=== PATIENT | male | born 1990 | race Caucasian/White ===

== ENCOUNTER 2023-04-12 10:42 | Emergency (ER) | payer BC, SELFPAY ==
[2023-04-12 11:10] VITALS: BP 123/88; PULSE 87; RESP 18; TEMP 36.7; O2SAT 100; BMI 24.4
--- NOTE | 2023-04-12 11:23 | ED.GENADULT ---
HPI - General Adult General Chief complaint: Chest Pain Stated complaint: Chest/back pain Time Seen by Provider: 04/12/23 10:50 History of Present Illness HPI narrative: reports that he has had gradually worsening chest and back pain since yesterday afternoon. pain worsens with certain movements. has had some back issues in the past. due to overuse as he was pushing cars. this pain is different and denies any trauma. pain lingers all the time, but movements exacerbate the pain. does have hx of anxiety also. did not eat today as he was at work and does admit to feeling lightheaded. came from work to here. he has a job as an mill machinist. does admit to doing bench presses and working out with weights the last 2 weeks. 32-year-old man presenting to the emergency department with complaint of left low anterior chest pain. This has been present persistently since yesterday. Noticed it particularly when he went to try to set up from a period of rest. Had been present prior. Does have a history of heartburn but not really since he quit drinking though he did try some Tums. This heartburn usually presented with discomfort in the suprasternal notch. Does not have a cardiac history. He has started weightlifting again recently but does not recall injuring himself in after the initial 2 days of being sore that had mostly resolved. Pain seems to be worse with movement. 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 I noted to be breathing heavily but he denies being short of breath indeed is oxygenating 100% when he is labored like this. Is hungry would like to eat his breakfast the left in the car. Does endorse some anxiety and some lightheadedness. No peripheral symptoms reported. No cough or cold symptoms. No fever. No rash but then he is uncertain looking at his chest. Did also try some ?extra-strength Tylenol? without relief. Related Data Allergies Allergy/AdvReac Type Severity Reaction Status Date / Time cefdinir Allergy Verified 04/12/23 11:09 Review of Systems Status of ROS: Reports: 6 or more systems reviewed and unremarkable except as noted in History and below PFSH PFS Social History Smoking Status: Current some day smoker Do you use any of these nicotine containing products: E-Cigarettes Second hand tobacco smoke exposure: No How often do you have a drink containing alcohol: monthly or less How many standard drinks containing alcohol do you have on a typical day: 1 or 2 How often do you have six or more drinks on one occasion: Less than monthly AUDIT-C Alcohol total score: 2 Non-prescribed substance use: marijuana (any form) Non-prescribed substance use details: smokes and gummies weekly service: No Exam Narrative: Exam Narrative: Intermittently labored breathing. Grimacing intermittently in apparent discomfort. Buried in degrees of presentation over the course of our interview. Cranial nerves 2-12 intact. Moving all extremities without difficulty. He has no lower extremity edema. Lungs are clear with breath sounds throughout. There is no supraclavicular crepitus. Heart in regular rate and rhythm the murmur rub or gallop. Abdomen is soft and nontender. I am not really able to reproduce reliably discomfort in the area in question in the right low chest. Opposition compression testing does not precisely reproduce it either. He is sore to palpation in the paraspinal musculature of the left infra scapular area. Const: Vital Signs, click to edit/add: Vital Signs - 24 hr 04/12/23 11:10 04/12/23 11:50 04/12/23 13:00 Temperature 98.1 F Pulse Rate [Pulse Oximeter] 87 88 100 Respiratory Rate 18 18 18 Blood Pressure [Ri ght Upper Arm] 123/88 124/86 118/85 Pulse Oximetry 100 99 99 Oxygen Delivery Me thod Room Air Room Air Documenting provider has reviewed patient's vital signs: yes Course Vital Signs Vital signs: Initial Vital Signs Temperature 98.1 F 04/12/23 11:10 Temperature Source Temporal Artery Scan 04/12/23 11:10 Pulse Rate 87 04/12/23 11:10 Pulse Rhythm Regular 04/12/23 11:10 Respiratory Rate 18 04/12/23 11:10 Blood Pressure 123/88 04/12/23 11:10 Blood Pressure Mean 99 04/12/23 11:10 Blood Pressure Position Supine 04/12/23 11:10 Pulse Oximetry 100 04/12/23 11:10 Oxygen Delivery Method Room Air 04/12/23 11:10 Vital Signs Temperature 98.1 F 04/12/23 11:10 Pulse Rate 87 04/12/23 11:10 Respiratory Rate 18 04/12/23 11:10 Blood Pressure 123/88 04/12/23 11:10 Pulse Oximetry 100 04/12/23 11:10 Oxygen Delivery Method Room Air 04/12/23 11:10 Temperature 98.1 F 04/12/23 11:10 Pulse Rate 100 04/12/23 13:00 Respiratory Rate 18 04/12/23 13:00 Blood Pressure 118/85 04/12/23 13:00 Pulse Oximetry 99 04/12/23 13:00 Oxygen Delivery Method Room Air 04/12/23 11:50 Medications Administered Medications: Discontinued Medications Generic Name Dose Route Start Last Admin Trade Name Freq PRN Reason Stop Dose Admin Ibuprofen 800 mg 04/12/23 12:28 04/12/23 13:17 Ibuprofen 400 Mg Tablet PO 04/12/23 12:29 800 mg ONCE ONE Administration Medical Decision Making MDM Narrative Medical decision making narrative: Certainly would appear to be chest wall pain though is not reliably reproducible. Intercostal irritation of some sort? Possible pneumonia though no infectious prodrome apparent. Pneumothorax? Does not appear to be gallbladder disease. Doubtful ischemic cardiac. Pericarditis? Pleuritis? Though again not pleuritic exactly. Same goes for pulmonary embolus? Prescribed ibuprofen. Will check chest x-ray and labs potentially indicate further workup. Chest x-ray reviewed by me is unremarkable without pneumothorax or pneumomediastinum. No pneumonia. Maybe some atelectatic change in the right lower lung. On reassessment is quite improved during time in the emergency department. See patient discharge plan Lab Data Lab results reviewed: Yes I reviewed the patient's lab results Labs: Lab Results 04/12/23 04/12/23 Range/Units 11:36 11:49 WBC 6.29 (4.50-11.00) K/uL RBC 5.01 (4.30-5.90) m/uL Hgb 14.4 (13.5-17.5) gm/dL Hct 42.6 (37.0-53.0) % MCV 85 (80-100) fL MCH 29 (26-34) pg MCHC 34 (32-36) gm/dL RDW Coeff of Lara 12.1 (11.5-15.5) % Plt Count 326 (140-440) K/uL Neut % (Auto) 50.4 (42.0-72.0) % Lymph % (Auto) 38.5 (20-44) % [place] % (Auto) 6.8 (0.0-11.0) % Eos % (Auto) 3.7 (0.0-7.0) % Baso % (Auto) 0.6 (0.0-3.0) % Neut # (Auto) 3.17 (1.7-7.0) K/uL Lymph # (Auto) 2.42 (0.90-2.90) K/uL [place] # (Auto) 0.40 (0.00-0.90) K/UL Eos # (Auto) 0.23 (0.00-0.50) K/uL Baso # (Auto) 0.04 (0.00-0.30) K/uL Abs Immat Gran (auto) 0.00 (0.00-0.30) K/uL Imm/Tot Granulo (auto) 0.0 % D-Dimer Quant (PE/DVT) 0.18 (0.00-0.50) ug/ml Sodium 135 (135-149) mmol/L Potassium 3.3 L (3.6-5.1) mmol/L Chloride 100 (96-114) mmol/L Carbon Dioxide 22 (20-32) mmol/L Anion Gap 13 (7-15) mEq/L BUN 10 (5-24) mg/dL Creatinine 0.6 (0.5-1.5) mg/dL Estimated Creat Clear 180.81 Estimated GFR 131 ml/min Glucose 97 (60-115) mg/dL Calcium 9.7 (8.4-10.6) mg/dL Total Bilirubin 0.4 (0.1-1.5) mg/dL Direct Bilirubin 0.2 (0.0-0.5) mg/dL AST 33 (12-35) U/L ALT 35 (4-50) U/L Alkaline Phosphatase 58 (40-150) U/L Troponin I < 0.01 L (0.01-0.04) ng/mL C-Reactive Protein < 0.5 L (0.5-1.0) mg/dL NT-Pro-B Natriuret Pep < 20 pg/mL Total Protein 7.2 (6.0-8.3) g/dL Albumin 4.6 (3.3-5.0) g/dL Lipase 119 (23-300) U/L POC Troponin I 0.00 L (0.01-0.04) ng/ml ECG Data Attestation: I personally reviewed and interpreted this ECG as follows: (Normal sinus rhythm rate of 73. No acute ischemic changes.) Discharge Plan Discharge Clinical Impression: Chest wall pain Patient Disposition: Home, Self-Care Condition: Improved Additional Instructions: Sorry I can not tell you for sure what is going on; I think for lack of better terminology, costochondritis of some form. Typically treat this with NSAIDs. As I said would recommend taking up to 800 mg of ibuprofen 3 times daily over the next 4-5 days are alternatively up to 500 mg naproxen twice daily. Reassess after that this need for further treatment. Of course if things escalate, you become increasingly short of breath, persistently lightheaded, please return. Follow Up/Referrals: Provider,Not a Local [Primary Care Provider] - Stand Alone Forms: TrustedAd Info Instructions
--- NOTE | 2023-04-12 11:35 | XR_ITS ---
Patient: ALPESH SALMON Facility:?[facility] Patient ID:?[id number] Site Patient ID:?[id number]. Site :?1990 Study:?XRay-Chest 2V-04/12/2023 12:03:47 PM Ordering Physician:?DR. OHARA Final Report: Indication: Chest pain. Technique: Two view(s) of the chest. Comparison: None available. Findings: Normal cardiomediastinal silhouette and pulmonary vasculature. Lungs are well inflated and clear. No focal consolidation, pleural effusion or pneumothorax. No acute osseous abnormality. Impression: No acute cardiopulmonary abnormality identified. Dictated by Mehreen Nugent MD @ 04/12/2023 12:15:12 PM Signed by:?Mehreen Nugent MD @04/12/2023 12:15:12 PM (Electronic Signature)
[2023-04-12 11:50] VITALS: BP 124/86; PULSE 88; RESP 18; O2SAT 99
[2023-04-12 12:07] LABS: Basophils Absolute Auto 0.04 K/uL (0.00-0.30); Basophils Percent Auto 0.6 % (0.0-3.0); Eosinophils Absolute Auto 0.23 K/uL (0.00-0.50); Eosinophils Percent Auto 3.7 % (0.0-7.0); Hematocrit 42.6 % (37.0-53.0); Hemoglobin* 14.4 gm/dL (13.5-17.5); Lymphocytes Absolute Auto 2.42 K/uL (0.90-2.90); Lymphocytes Percent Auto 38.5 % (20-44); Mean Corpuscular HGB Conc 34 gm/dL (32-36); Mean Corpuscular Hemoglobin 29 pg (26-34); Mean Corpuscular Volume 85 fL (80-100); Monocytes Percent Auto 6.8 % (0.0-11.0); Neutrophils Absolute Auto 3.17 K/uL (1.7-7.0); Neutrophils Percent Auto 50.4 % (42.0-72.0); Platelet Count* 326 K/uL (140-440); RDW Coefficient of Variation % 12.1 % (11.5-15.5); Red Blood Count 5.01 m/uL (4.30-5.90); White Blood Count* 6.29 K/uL (4.50-11.00)
[2023-04-12 12:09] LABS: Slide Review Reflex No
[2023-04-12 12:21] LABS: Albumin* 4.6 g/dL (3.3-5.0); Chloride* 100 mmol/L (96-114)
[2023-04-12 12:22] LABS: Potassium* 3.3 mmol/L (3.6-5.1); Sodium* 135 mmol/L (135-149)
[2023-04-12 12:23] LABS: Creatinine* 0.6 mg/dL (0.5-1.5); Est. Creatinine Clearance* 180.81; Estimated Glomerular Filt Rate 131 ml/min
[2023-04-12 12:24] LABS: Alkaline Phosphatase* 58 U/L (40-150); Anion Gap 13 mEq/L (7-15); Aspartate Amino Transferase* 33 U/L (12-35); Bilirubin Direct* 0.2 mg/dL (0.0-0.5); Bilirubin Total* 0.4 mg/dL (0.1-1.5); Blood Urea Nitrogen* 10 mg/dL (5-24); Carbon Dioxide* 22 mmol/L (20-32); Lipase* 119 U/L (23-300); Total Protein* 7.2 g/dL (6.0-8.3)
[2023-04-12 12:25] LABS: Alanine Aminotransferase* 35 U/L (4-50); Calcium* 9.7 mg/dL (8.4-10.6); Glucose* 97 mg/dL (60-115)
[2023-04-12 12:29] LABS: C Reactive Protein* < 0.5 mg/dL (0.5-1.0)
[2023-04-12 12:34] LABS: NT Pro B Type NatriureticPept* < 20 pg/mL
[2023-04-12 12:38] LABS: Troponin I* < 0.01 ng/mL (0.01-0.04)
[2023-04-12 13:00] VITALS: BP 118/85; PULSE 100; RESP 18; O2SAT 99
[2023-04-12 13:09] LABS: D Dimer Quantitative* 0.18 ug/ml (0.00-0.50)
[2023-04-12] MEDS: IBUPROFEN 400 MG TABLET 800 MG PO (13:17)
== END 2023-04-12 13:34 | disposition home or self-care (01) ==
PROVIDERS: Emergency Provider Family Medicine
DX: R07.89 Other chest pain (principal)
CPT/HCPCS: 36415; 71046; 80048; 80076; 83690; 83880; 84484; 85025; 85379; 86140; 93005; 99284; 99285; A9270

== ENCOUNTER 2025-02-11 15:12 | Emergency (ER) | payer BC, SELFPAY ==
--- OUTSIDE RECORDS SUMMARY | 2025-01-31 12:30 | XMS_ITS | Encounter Summary ---
Author Organization [place] Address [address] [place] [address] Care Team Providers Care Nurse Practitioner Home Assessments Name Role Phone Dalia Wang PA-C Primary Care Provid er Dalia Wang PA-C Unavailable [phone]- [phone] Parris Soto CORPORATE SECURITY MANAGER Unavailable [phone] Reason for Visit * ReasonCommentsInjectionsImm/InjSublocade 300mg * Treatment and Therapy Plans (Routine) - Pending ReviewSpecialtyDiagnoses / ProceduresReferred By ContactReferred To ContactInfusion Therapy Diagnoses Opioid dependence with opioid-induced disorder (H) Procedures BUPRENORPH XR 100 MG OR LESS BUPRENORPHINE XR OVER 100 MG Rica Varela, FUEL MANAGER [address] [place] [address] Phone: tel: fax: [facility] [address] [place] [address] [address] [place] [address] Phone: tel: fax: Referral IDStatusReasonStart DateExpiration DateVisits RequestedVisits [id number] Encounter Details DateTypeDepartmentCare Team (Latest Contact Info)Fkzebjueteu10/19/2025 12:30 PM CSTInfusion Therapy Visit [facility] [address] [place] [address] [address] [place] [address] Rica Varela, FUEL MANAGER [address] [facility] [address] [place] [address] Opioid dependence with opioid-induced disorder (H) (Primary Dx) Social History Tobacco UseTypesPacks/DayYears UsedDateSmoking Tobacco: FormerCigarettes0.55 Vaping DevicePassive Smoke Exposure: NeverSmokeless Tobacco: CurrentChewAlcohol UseStandard Drinks/WeekCommentsNot Currently0 (1 standard drink = 0.6 oz pure alcohol)AUDIT-CAnswerDate RecordedQ1: How often do you have a drink containing alcohol?2-4 times a month03/27/2020Q2: How many drinks containing alcohol do you have on a typical day when you are drinking?5 or 6003/27/2020Q3: How often do you have six or more drinks on one occasion?Less than swxlahd9903/27/2020HQ-2Answer Date RecordedPHQ-2 Ouvwm543dolescent EducationAnswerDate Recorded Getting School Help NeededNot on file11/15/2022Food InsecurityAnswerDate RecordedWithin the past 12 months, did you worry that your food would run out before you got money to buy more?No01/26/2025Within the past 12 months, did the food you bought just not last and you didn???t have money to getmore?No 01/26/2025Housing StabilityAnswerDate RecordedDo you have housing? (Housing is defined as stable permanent housing and does not include staying outside in a car, in a tent, in an abandoned building, in an overnight senior living, or couch-surfing.)Yes01/26/2025re you worried about losing your housing?No 01/26/2025Financial Resource StrainAnswerDate RecordedWithin the past 12 months, have you or your family members you live with been unable to get utilities (heat, electricity) when it was really needed?No01/26/2025Transportation Needs AnswerDate RecordedWithin the past 12 months, has lack of transportation kept you from medical appointments, getting your medicines, non-medical meetings or appointments, work, or from getting things that you need?No01/26/2025Sex and Gender InformationValueDate RecordedSex Assigned at BirthNot on fileLegal Sex Male12/18/2011 3:19 AM CSTGender IdentityNot on fileSexual OrientationNot on fileOccupationIndustryJob Start DateJob End Datemachinist, programsNot on file Not on fileNot on filedocumented as of this encounter Last Filed Vital Signs Vital SignReadingTime TakenCommentsBlood Eogintcg272/7901/31/2025 11:30 AM BOW MAKER GIFT WRAPPING Uexgd224001/31/2025 11:30 AM LPDVsbkhexbnhf48.4 ??C (99.3 ??F)01/31/2025 11:30 AM CSTRespiratory Rate--Oxygen Saturation--Inhaled Oxygen Concentration--Weight-- Height--Body Mass Index--documented in this encounter Progress Notes * Laisha Deng RN - 01/31/2025 12:30 PM CST Infusion Nursing Note: Rory Adams presents today for sublocade injection Patient seen by provider today: Yes: Going to after this injectin Mannequin Mounter present during visit today: Not Applicable. Note: N/A. Has pt had any opioid use in the last week ? No Has pt had any withdrawal symptoms or cravings in the last week? No Is there any evidence of tampering with the old depot? No Lidocaine and then Sublocade given in the LLQ. Post Infusion Assessment: Patient tolerated injection without incident. Discharge Plan: Patient discharged in stable condition accompanied by: self. Departure Mode: Ambulatory. RTC 03/07/25. Laisha Deng RN MAKER GIFT WRAPPING documented in this encounter Plan of Treatment DateTypeDepartmentCare Team (Latest Contact Info)Omfytxafxzg81/23/2026 8:30 AM CSTInfusion Therapy Visit [facility] [address] [address] [place], [place] [id number] Rica Varela, FUEL MANAGER [address] [place] [address] [address] [place], [place] [id number] documented as of this encounter Visit Diagnoses Diagnosis Opioid dependence with opioid-induced disorder (H)- Primary Unspecified drug-induced mental disorder documented in this encounter Administered Medications Medication OrderMAR ActionAction DateDoseRateSite buprenorphine ER (SUBLOCADE) syringe 300 mg 300 mg, Subcutaneous, ONCE, On Mon01/31/25 at 1130, For 1 dose, Allow to sit at room temperature for at least 15 minutes prior to administration. Give only by subcutaneous injection in the abdomen, thigh, buttock, or back of the upper arm. Indications:Opioid dependence with opioid-induced disorder (H)$Given01/31/2025 11:34 AM JAO164 mgLeft Lower Abdomen lidocaine (PF) (XYLOCAINE) 1 % injection 2 mL 2 mL, Subcutaneous, ONCE, On Mon01/31/25 at 1130, For 1 dose, Give PRIOR to Sublocade injection. Ze the spot where the Lidocaine is given, wait a few minutes for the tissue to numb and then administer Sublocade with the same trajectory as you did with the Lidocaine. Indications:Opioid dependence with opioid-induced disorder (H)$Given01/31/2025 11:28 AM CST2 mLsLeft Lower Abdomendocumented in this encounter Additional Health Concerns AssessmentNoted TimePHQ-9 Depression Total Score: 7104/03/2024 12:41 PM BOW MAKER GIFT WRAPPING documented as of this encounter Care Teams Team MemberRelationshipSpecialtyStart DateEnd Dalia Wang PA-C [address] , [address] [address] PCP - GeneralPhysician Assistant08/26/16 Dalia Wang PA-C [address], [place] [address] [place] [address] Assigned PCP07/07/19 Parris Soto NP [facility] [address] [place], [place] [address] Assigned Behavioral Health Provider07/05/24documented as of this encounter
[2025-02-11 15:23] VITALS: BP 107/71; PULSE 82; RESP 18; TEMP 35.9; O2SAT 99; BMI 24.4
--- OUTSIDE RECORDS SUMMARY | 2025-02-11 15:26 | XMS_ITS | Encounter Summary ---
Author Organization [place] Address [address] [facility] [place] [address] Care Team Providers Care Windows Server Administrator Name Role Phone Dalia Wang PA-C Primary Care Provid er Dalia Wang PA-C Unavailable [phone] Parris Soto NP Unavailable [phone] Encounter Details DateTypeDepartmentCare Team (Latest Contact Info)Rlgyyqqahkj90/19/2025Travel Social History Tobacco UseTypesPacks/DayYears UsedDateSmoking Tobacco: FormerCigarettes0.55 [...] or more drinks on one occasion?Less than uqbyelp20/12/2021PHQ-2Answer Date RecordedPHQ-2 Ocirn856dolescent EducationAnswerDate Recorded Getting School Help NeededNot on [...] in an abandoned building, in an overnight fdc, or couch-surfing.)Yes01/26/2025re you worried about losing your [...] fileNot on filedocumented as of this encounter Plan of Treatment DateTypeDepartmentCare Team (Latest Contact Info)Zycocujknue87/23/2026 8:30 AM CSTInfusion Therapy Visit [facility] [address] [address] [place], [place] [address] Rica Varela, BATTER SCALER [address] [facility] [address] [place] [address] documented as of this encounter Visit Diagnoses Not on filedocumented in this encounter Additional Health Concerns AssessmentNoted TimePHQ-9 Depression Total Score: 7104/03/2024 12:41 PM SALES LEDGER ADMINISTRATOR documented as of this encounter Care Teams Team MemberRelationshipSpecialtyStart DateEnd Date Dalia Wang PA-C [address], [facility] [address] [place] [address] PCP - GeneralPhysician Assistant08/26/16 Dalia Wang PA-C [address] [facility] [address] [place] [address] Assigned PCP07/07/19 Parris Soto NP [facility] [address] [place] [address] Assigned Behavioral Health Provider07/05/24documented as of this encounter
--- OUTSIDE RECORDS SUMMARY | 2025-02-11 15:26 | XMS_ITS | Encounter Summary ---
Author Organization [place] Address [address] [facility] [place] [address] Care Team Providers Care Precision Agronomist Name Role Phone Dalia Wang PA-C Primary Care Provid er Dalia Wang PA-C Unavailable [phone] Parris Soto NP Unavailable [phone] Encounter Details DateTypeDepartmentCare Team (Latest Contact Info)Byehifnkehf03/14/2025Travel Social History Tobacco UseTypesPacks/DayYears UsedDateSmoking Tobacco: FormerCigarettes0.55 [...] or more drinks on one occasion?Less than ljybxac83/12/2021PHQ-2Answer Date RecordedPHQ-2 Rvcrd336dolescent EducationAnswerDate Recorded Getting School Help NeededNot on [...] in an abandoned building, in an overnight residential, or couch-surfing.)Yes01/26/2025re you worried about losing your [...] Plan of Treatment DateTypeDepartmentCare Team (Latest Contact Info)Dczimraioyw65/23/2026 8:30 AM CSTInfusion Therapy Visit [facility] [address] [place] [address] [place], [place] [address] Rica Varela, ELECTRICIAN RADIO [address] [facility] [address] [place] [address] documented as of this encounter Visit Diagnoses Not on filedocumented in this encounter Additional Health Concerns AssessmentNoted TimePHQ-9 Depression Total Score: 9:08 AM TERRAZZO WORKER APPRENTICE documented as of this encounter Care Teams Team MemberRelationshipSpecialtyStart DateEnd Date Dalia Wang PA-C [address], [facility] [address] [place] [address] PCP - GeneralPhysician Assistant08/26/16 Dalia Wang PA-C [address] [facility] [address] [place] [address] Assigned PCP07/07/19 Parris Soto NP [facility] [address] [place] [address] Assigned Behavioral Health Provider07/05/24documented as of this encounter
--- OUTSIDE RECORDS SUMMARY | 2025-02-11 15:26 | XMS_ITS | Clinical Summary ---
Author Organization [facility] Address [facility] [place] [address] Care Team Providers Care Accounts Payable Lead Name Role Phone Anyi Salcido Primary Care Provider [phone] Allergies Active AllergyReactionsCriticalityNoted DateCommentsCefprozil*Uixasqv3807/26/2015 Medications MedicationSigDispense QuantityRefillsLast FilledStart DateEnd DateStatus omeprazole (PRILOSEC) 40 mg Delayed-Release capsule Take 40 mg by mouth once daily.Active ondansetron (ZOFRAN ODT) 8 mg disintegrating tablet Indications:Nausea and vomiting, unspecified intactability, vomiting of unspecified typePlace 1 tablet on the tongue every 8 hours if needed for Nausea/Vomiting. 15 tablet Active LORazepam (ATIVAN) 1 mg tablet Indications:AnxietyTake 1 tablet by mouth every 6 hours if needed. 3 tablet Active CPAP Indications:Obstructive sleep apnea syndromeCPAP (E0601) machine for home use at pressure: 10 cmH2O, Choice of mask (A7030 or A7034) w/full face cushion (A7031) x1/mo, nasal cushion (A7032) x2/mo, or nasal pillows (A7033) x 2/mo; Heated humidifier (E0562) x 1/5 year, Humidifier chamber (A7046) x 1/6mo, Chinstrap (A7036) x 1/6mo, Heated tubing (A4604) x 1/3mo, Headgear (A7035) x 1/6mo, Filters: Disposable (A7038) x 2pk/1mo & Reusable (A7039) x 1pk/6mo; Length of Need: 99 months; Frequency of use: Daily DME: [facility] NEW TO [employer] RESMED REPLACEMENT MACHINE WHEN ELIGIBLE (FEBRUARY 2024?) PLEASE TAG US IN AIRVIEW 1 Each ctive Social History Tobacco UseTypesPacks/DayYears UsedDateSmoking Tobacco: Every Day Tobacco Cessation:Counseling Given: No Alcohol UseStandard Drinks/WeekCommentsNo0 (1 standard drink = 0.6 oz pure alcohol)Social ConnectionsAnswerDate RecordedFrequency of Communication with Friends and FamilyNot on file10/30/2023Sex and Gender InformationValueDate RecordedSex Assigned at BirthNot on fileLegal LlnUgyf8307/26/2015 2:08 PM CDT Gender IdentityNot on fileSexual OrientationNot on file Last Filed Vital Signs Vital SignReadingTime TakenCommentsBlood Krqwochc450/8107/26/2015 3:01 PM CDT Vgwfu669507/26/2015 3:01 PM QAWNkkzfioaknz96.7 ??C (98 ??F)07/26/2015 2:15 PM CDT Respiratory Xcsl850707/26/2015 3:33 PM CDTOxygen Hraaqsadke29%07/26/2015 3:01 PM CDTInhaled Oxygen Concentration--Weight--Height--Body Mass Index-- Plan of Treatment Health MaintenanceDue DateLast DoneCommentsTetanus xlxymzz8411/14/2000Depression screening for age 12+2001HIV for age 15-6511/14/2004BMI (ht and wt on same day) for age 18+11/15/2007Hepatitis C screening for age 18-7911/15/2007Hepatitis B series for 19+ (1 of 3 - 19+ 3-dose series)2008HPV series for age 9-45 (1 - 3-dose SCDM series)2016COVID-19 vaccine series (2024- season) 5006/12/2020, 05/22/2020Influenza Vaccine (#1)2024Lipids for age 35-4410Pneumococcal series for age 6-49Aged OutNo longer eligible based on patient's age to complete this topic Insurance * Guarantor: Rory Adams TypeRelation to PatientDate of BirthPhone Billing AddressPersonal/HzailyUmwg80/[birth year][address] [place] [address] Care Teams Team MemberRelationshipSpecialtyStart DateEnd Date Anyi Salcido PCP - GeneralPhysician Assistant07/26/15
--- OUTSIDE RECORDS SUMMARY | 2025-02-11 15:26 | XMS_ITS | Encounter Summary ---
Author Organization [place] Address [address] [facility] [place] [address] Care Team Providers Care Agricultural Equipment Mechanic Name Role Phone Dalia Wang PA-C Primary Care Provid er Dalia Wang PA-C Unavailable [phone] Parris Soto NP Unavailable [phone] Encounter Details DateTypeDepartmentCare Team (Latest Contact Info)Zxxjxqwhenf21/21/2025Travel Social History Tobacco UseTypesPacks/DayYears UsedDateSmoking Tobacco: FormerCigarettes0.55 [...] or more drinks on one occasion?Less than /12/2021PHQ-2Answer Date RecordedPHQ-2 Bptgm818dolescent EducationAnswerDate Recorded Getting School Help NeededNot on file11/15/2022Food InsecurityAnswerDate RecordedWithin the past 12 months, did you worry that your food would run out before you got money to buy more?No07/26/2024Within the past 12 months, did the food you bought just not last and you didn???t have money to getmore?No 07/26/2024Housing StabilityAnswerDate RecordedDo you have housing? (Housing is defined as stable permanent housing and does not include staying outside in a car, in a tent, in an abandoned building, in an overnight care home, or couch-surfing.)Yes07/26/2024re you worried about losing your housing?No 07/26/2024Financial Resource StrainAnswerDate RecordedWithin the past 12 months, have you or your family members you live with been unable to get utilities (heat, electricity) when it was really needed?No07/26/2024Transportation Needs AnswerDate RecordedWithin the past 12 months, has lack of transportation kept you from medical appointments, getting your medicines, non-medical meetings or appointments, work, or from getting things that you need?No07/26/2024Sex and Gender InformationValueDate RecordedSex Assigned at BirthNot on fileLegal Sex Male12/18/2011 3:19 AM CSTGender IdentityNot on fileSexual OrientationNot on fileOccupationIndustryJob Start DateJob End Datemachinist, programsNot on file Not on fileNot on filedocumented as of this encounter Plan of Treatment DateTypeDepartmentCare Team (Latest Contact Info)Pafmyphnwdw51/23/2026 8:30 AM CSTInfusion Therapy Visit [facility] [address] [place], [place] [address] Rica Varela, GUZZLER BUILDER [address] [facility] [address] [place] [address] documented as of this encounter Visit Diagnoses Not on filedocumented in this encounter Additional Health Concerns AssessmentNoted TimePHQ-9 Depression Total Score: 9:08 AM REGIONAL ACCOUNT MANAGER documented as of this encounter Care Teams Team MemberRelationshipSpecialtyStart DateEnd Date Dalia Wang PA-C [address], [facility] [address] [place] [address] PCP - GeneralPhysician Assistant08/26/16 Dalia Wang PA-C [address] [facility] [address] [place] [address] Assigned PCP07/07/19 Parris Soto NP [facility] [address] [place] [address] Assigned Behavioral Health Provider07/05/24documented as of this encounter
--- OUTSIDE RECORDS SUMMARY | 2025-02-11 15:26 | XMS_ITS | Clinical Summary ---
Author Organization [place] Address [address] [facility] [place] [address] Care Team Providers Care Rent And Miscellaneous Remittance Clerk Name Role Phone Dalia Wang PA-C Primary Care Provid er Dalia Wang PA-C Unavailable [phone] Parris Soto INSPECTOR RUBBER STAMP DIE Unavailable [phone] Allergies Active AllergyReactionsCriticalityNoted FbjzTlsytaaaUjbfybvpo72/09/2010 Medications * This document contains information received from the source organization and may not represent a complete record from that organization. MedicationSigDispense QuantityRefillsLast FilledStart DateEnd DateStatus albuterol (PROAIR HFA/PROVENTIL HFA/VENTOLIN HFA) 108 (90 Base) MCG/ACT inhaler Indications:Mild intermittent asthma without complicationInhale 2 puffs into the lungs every 6 hours as needed for shortness of breath, wheezing or cough 18 g 3Active triamcinolone (KENALOG) 0.1 % external ointment Indications:DermatitisApply topically 2 times daily. 30 g 4Active Additional Information Patient not taking.Reported on 12/06/2024 naloxone (NARCAN) 4 MG/0.1ML nasal spray Indications:Opioid use disorderSpray 1 spray (4 mg) into one nostril alternating nostrils as needed for opioid reversal. every 2-3minutes until assistance arrives 0.2 mL 1105Active Additional Information Patient not taking.Reported on 01/31/2025 docusate sodium (COLACE) 100 MG capsule Indications:Constipation due to opioid therapyTake 1 capsule (100 mg) by mouth 2 times daily as needed for constipation. 60 capsule 5Active polyethylene glycol (MIRALAX) 17 GM/Dose powder Indications:Constipation due to opioid therapyTake 17 g (1 Capful) by mouth daily. 578 g 5Active PARoxetine (PAXIL) 40 MG tablet Indications:Panic disorder without agoraphobia,Obsessive-compulsive disorder, unspecified typeTake 1 tablet (40 mg) by mouth every morning. 90 tablet 5Active traZODone (DESYREL) 50 MG tablet Indications:Insomnia, unspecified typeTake 1.5 tablets (75 mg) by mouth at bedtime. 135 tablet 5Active sildenafil (VIAGRA) 50 MG tablet Indications:Erectile dysfunction, unspecified erectile dysfunction typeTake 0.5- 1 tablets by mouth 1 hour prior to intercourse. Max dose: 2 tabs/24 hours. Do not take with doxazosin, tamsulosin, nitroglycerin. 30 tablet 5Active buprenorphine HCl-naloxone HCl (SUBOXONE) 8-2 MG per film Indications:Opioid use disorder,Encounter for monitoring opioid maintenance therapyPlace 0.5-1 Film under the tongue daily as needed (withdrawal symptoms, cravings). 30 Film 5Active buprenorphine HCl-naloxone HCl (SUBOXONE) 8-2 MG per film Indications:Opioid use disorder,Encounter for monitoring opioid maintenance therapyPlace 0.5-1 Film under the tongue daily as needed (withdrawal symptoms, cravings). 30 Film Discontinued(Reorder (No AVS)) Active Problems ProblemNoted DateDiagnosed DateModerate recurrent major /29/2025 Nicotine use08/30/2024Opioid jmqpxwfumj67/14/2025Opioid use tuqxnxld05/10/2025 Attention deficit hyperactivity disorder (ADHD), predominantly inattentive type 01/11/2024Erectile dysfunction, unspecified erectile dysfunction type01/11/2024 Insomnia, unspecified type03/25/20225006Chhneirtiy13/12/2021OSA (obstructive sleep apnea)09/16/2019 Overview (09/16/2019): Controlled on CPAP Periodic limb movement kulxwqhp83/03/2020Panic disorder without agoraphobia 03/13/2017ACP (advance care planning)02/25/2016 Overview (02/25/2016): Advance Care Planning 02/25/2016: ACP Review of Chart / Resources Provided: Reviewed chart for advance care plan. Alpesh Salmon has no plan or code status on file. Discussed available resources and provided with information. Confirmed code status reflects current choices pending further ACP discussions. Confirmed/documented legally designated decision makers. Added by Vaishnavi Florez OCD (obsessive compulsive disorder)07/27/20151167Chczbwwddi76/13/2016Personal history of tobacco use, presenting hazards to mlpwuj8207/27/2015Mild intermittent asthma without wtbmwjdgufch14/13/2016Allergic pelmarxd11/07/2011 Overview (2014): Problem list name updated by automated process. Provider to review Generalized evxrihcplobhi97/09/2010 Resolved Problems ProblemNoted DateDiagnosed DateResolved DateHistory of substance abuse08/30/2024 09/06/2024Opiate zyauemomow01/14/13798609/06/2024sthma, mild intermittent Generalized anxiety vtaeuygt31 Overview (12/15/2014): Diagnosis updated by automated process. Provider to review and confirm. Health Care Home Overview (10/31/2012): State Tier Level: Tier 1 Status: n/a Retail Pricing Coordinator: See Letters for [facility] Care Plan Tobacco use ifbfobjr72/28//5247Dbbwgniznfmo25/28/Cough variant /28/Asthma, ugpyevgetwbo32 Encounters * This document contains information received from the source organization and may not represent a complete record from that organization. DateTypeDepartmentCare RastKfxjvzzhnjq43/19/2025 12:30 PM CSTInfusion Therapy Visit [facility] [address] [place] [address] Rica Varela CNP Opioid dependence with opioid-induced disorder (H) (Primary Dx)01/31/2025Travel 01/26/20251802Hnoffq60/21/6153Tjbcgt05/20/3571Zovbin84/24/2025 8:30 AM CDTInfusion Therapy Visit [facility] [address] [place] [address] [address] [place] [address] Rica Varela CNP Opioid dependence with opioid-induced disorder (H) (Primary Dx)12/06/2024Travel from Last 3 Months Immunizations ImmunizationAdministration DatesNext DueCOVID-19 MONOVALENT 12+ (Pfizer) 06/12/2020,1DTAP (<7y)12/23/1994,06/21/1991,06/06/1990,04/02/1990, 02/09/1990HEPA102/20/2006,03/31/2006HIB (PRP-T)02/27/1991,06/06/1990,04/02/1990, 02/09/1990HepB07/07/1993,01/14/1993,11/12/1992Influenza (IIV3) PF11/19/2010, 11/20/2009,11/24/2003,01/06/2003,12/29/2001,12/19/1998Influenza Vaccine 18-64 (Flublok)11/22/2019Influenza Vaccine >6 months,quad, PF10/28/2022,01/19/2018, 03/13/2017,01/23/2015Influenza Vaccine, 6+MO IM (QUADRIVALENT W/PRESERVATIVES) 11/19/2020Influenza, Split Virus, Trivalent, Pf (Fluzone\Fluarix)01/12/2024MMR (MMRII)07/19/1999,02/27/1991Mantoux Tuberculin Skin Test11/20/1996Meningococcal (Menomune??)12/21/2006Poliovirus, inactivated (IPV)12/23/1994,06/21/1991, 04/02/1990,02/09/1990TD,PF 7+ (Tenivac)01/19/2018,10/24/2001TDAP (Adacel,Boostrix)03/23/2007Varicella Pt Report Hx of Varicella/Chicken Pox 01/24/1993 Family History Medical HistoryRelationCommentsAnxiety DisorderFatherDepressionFatherAnxiety DisorderMotherCancerMotherskin cancerDepressionMotherAnxiety DisorderSister 3 DepressionSister 3anxietyBreast CancerNo family hx ofC.A.D.No family hx ofCancer - colorectalNo family hx ofDiabetesNo family hx ofHypertensionNo family hx of Prostate CancerNo family hx ofRelationStatusCommentsFatherAliveMaternal GrandfatherDeceasedMaternal GrandmotherDeceasedMotherAlivePaternal Grandfather AlivePaternal GrandmotherDeceasedSister 1AliveSister 2AliveSister 3Alive Social History Tobacco UseTypesPacks/DayYears UsedDateSmoking Tobacco: FormerCigarettes0.55 Vaping DevicePassive Smoke Exposure: NeverSmokeless Tobacco: CurrentChew Tobacco Cessation:Ready to Q uit: Not Asked; Counseling Given: Not Answered Alcohol UseStandard Drinks/WeekCommentsNot Currently0 (1 standard drink = 0.6 oz pure alcohol)AUDIT-CAnswerDate RecordedQ1: How often do you have a drink containing alcohol?2-4 times a month03/27/2020Q2: How many drinks containing alcohol do you have on a typical day when you are drinking?5 or 6003/27/2020Q3: How often do you have six or more drinks on one occasion?Less than monthly 1PHQ-2AnswerDate RecordedPHQ-2 Kvuks780dolescent Education AnswerDate RecordedGetting School Help NeededNot on file11/15/2022Food InsecurityAnswerDate RecordedWithin the past 12 months, did you worry that your food would run out before you got money to buy more?No01/26/2025Within the past 12 months, did the food you bought just not last and you didn???t have money to getmore?No01/26/2025Housing StabilityAnswerDate RecordedDo you have housing? (Housing is defined as stable permanent housing and does not include staying ou tside in a car, in a tent, in an abandoned building, in an overnight halfway, or couch-surfing.)Yes01/26/2025re you worried about losing your [...] programsNot on file Not on fileNot on file Last Filed Vital Signs Vital SignReadingTime TakenCommentsBlood Mkrzjlyp648/7301/31/2025 12:40 PM TANDEM MILL STICKER Wlxed12637/19/2025 12:40 PM LTPJoicrssvyov73.4 ??C (99.3 ??F)01/31/2025 11:30 AM CSTRespiratory Jmhg571210/11/2024 9:38 AM CDTOxygen Wlmjmuhsqm446%11/08/2024 9:16 AM CDTInhaled Oxygen Concentration--Dnsojf58.1 kg (159 lb)08/30/2024 1:33 PM CDT Kjjryl210.1 cm (5' 10.5)07/14/2023 2:54 PM CDTBody Mass Index22.49007/14/2023 2:54 PM CDT Plan of Treatment DateTypeDepartmentCare Team (Latest Contact Info)Tmpacdlzlcc14/23/2026 8:30 AM CSTInfusion Therapy Visit [facility] [address] [place] [address] Rica Varela, SASH REPAIRER [address] [place] [address] Health MaintenanceDue DateLast DoneCommentsANNUAL REVIEW OF HM CEMBIV00 1989 CONTROLLED SUBSTANCE AGREEMENT FOR CHRONIC PAIN NFNNXABWQI58/02/1990YEARLY PREVENTIVE VISIT/STHMA CONTROL TEST, 07/14/2023, 10/28/2022, Additional history existsCOVID-19 VACCINE ( season)/, 05/22/2020INFLUENZA VACCINE (#1)2024 01/12/2024, 10/28/2022, 11/19/2020, Additional history existsASTHMA ACTION PLAN , 01/12/2024, 01/12/2024, Additional history existsGAD GWDTYUYNVR21, 01/12/2024, 07/14/2023, Additional history existsURINE DRUG DLTZEG91/, 05/17/2024, 03/20/2024PHQ-9 , 01/03/2025, 12/06/2024, Additional history existsADVANCE CARE GARMNQDH35/2DIABETES AENISJGFP50, 1DTAP/TDAP/TD VACCINE (8 - Td or Tdap), 03/23/2007, 10/24/2001, Additional history existsZOSTER VACCINE (1 of 2)11/15/2039HEPATITIS B RPELEFSXeupuspbn06/25/1994, 01/14/1993, 11/12/1992HEPATITIS A VACCINECompleted 12/21/2006, 03/31/2006, 07/07/1993, Additional history existsMENINGITIS VACCINE Aged Out12/21/2006No longer eligible based on patient's age to complete this topicPNEUMOCOCCAL VACCINE: PEDIATRICS (0 to 5 YEARS) AND AT-RISK PATIENTS (6 to 49 YEARS)Xqlcxfnrs63/12/2021 (Not Needed)Overridden with the intention of not completing the topicDEPRESSION ACTION TRVGLzxtqdydp82/13/2021HEPATITIS C SCREENINGDiscontinuedHIV SCREENINGDiscontinuedHPV VACCINE (No Doses Required) Completed Procedures Procedure NamePriorityDate/TimeAssociated DiagnosisCommentsDRUGS OF ABUSE SCREEN URINE (POC CUPS) THDXXxfknpm61/19/2025 12:35 PM TANDEM MILL STICKER Encounter for monitoring opioid maintenance therapy DRUGS OF ABUSE SCREEN URINE (POC CUPS) GZDCEnwwhtn07/21/2025 9:10 AM TANDEM MILL STICKER Opioid use disorder Encounter for monitoring opioid maintenance therapy DRUGS OF ABUSE SCREEN URINE (POC CUPS) HSEZPyykxir89/24/2025 9:12 AM CDT Opioid use disorder Encounter for monitoring opioid maintenance therapy COMPREHENSIVE METABOLIC FGCANNklhjok98/26/2025 9:43 AM CDT Opioid use disorder DRUG CONFIRMATION PANEL URINE WITH HXTCDPxvsvxb05/29/2025 11:46 AM CDT Opioid use disorder Encounter for monitoring opioid maintenance therapy ASTHMA ACTION CSQXFwtbenc23/15/2023 9:52 AM CDT Mild intermittent asthma without complication ASTHMA CONTROL TEST - [facility] IUMZHxjuwru39/13/2021 2:48 PM CDT Mild intermittent asthma without complication from Last 3 Months or Most Recently Relevant to Health Maintenance Results * (ABNORMAL) Drugs of Abuse Screen Urine (POC CUPS) POCT (01/31/2025 12:35 PM TANDEM MILL STICKER) Only the most recent of3 resultswithin the time period is included. ComponentValueRef RangeTest MethodAnalysis TimePerformed AtPathologist Signature POCT Kit Lot [id number] LABORATORY POCPOCT Kit Expiration [id number] LABORATORY POCTemperature Urine POCT92??F90??F, 92??F, 94??F, 96??F, 98??F, 100??FUR LABORATORY POCSpecific [place] POCT1.0251.005, 1.015, 1.025UR LABORATORY POCpH Qual Urine POCT5 pH4 pH, 5 pH, 7 pH, 9 pHUR LABORATORY POC Creatinine Qual Urine JLSG873 mg/dL20 mg/dL, 50 mg/dL, 100 mg/dL, 200 mg/dLUR LABORATORY POCInternal QC Qual Urine POCTValidValidUR LABORATORY POCAmphetamine Qual Urine POCTNegativeNegativeUR LABORATORY POCBarbiturate Qual Urine POCT NegativeNegativeUR LABORATORY POCBuprenorphine Qual Urine POCTScreen Positive(A) NegativeUR LABORATORY POCBenzodiazepine Qual Urine POCTNegativeNegativeUR LABORATORY POCCocaine Qual Urine POCTNegativeNegativeUR LABORATORY POC Methamphetamine Qual Urine POCTNegativeNegativeUR LABORATORY POCMDMA Qual Urine POCTNegativeNegativeUR LABORATORY POCMethadone Qual Urine POCTNegativeNegativeUR LABORATORY POCOpiate Qual Urine POCTNegativeNegativeUR LABORATORY POCOxycodone Qual Urine POCTNegativeNegativeUR LABORATORY POCPhencyclidine Qual Urine POCT NegativeNegativeUR LABORATORY POCTHC Qual Urine POCTScreen Positive(A)NegativeUR LABORATORY POCSpecimen (Source)Anatomical Location / LateralityCollection Method / VolumeCollection TimeReceived UnflHnjau91/19/2025 12:35 PM TANDEM MILL STICKER Narrative Authorizing ProviderResult TypeResult StatusHeather Nasreen Varela CNPLAB - ENTER/EDIT POCTFinal ResultPerforming OrganizationAddressCity/State/ZIP Code Phone Number UR LABORATORY POC [facility] [address] [facility] [place] [address], [facility] * Comprehensive metabolic panel (BMP + Alb, Alk Phos, ALT, AST, Total. Bili, TP) (11/08/2024 9:43 AM CDT)ComponentValueRef RangeTest MethodAnalysis Time Performed AtPathologist LnzrebqbaGntndp588378 - 145 mmol/L11/08/2024 10:53 AM CDTUR LABORATORYPotassium4.13.4 - 5.3 mmol/L11/08/2024 10:53 AM CDTUR LABORATORYCarbon Dioxide (CO2)2622 - 29 mmol/L11/08/2024 10:53 AM CDTUR LABORATORYAnion Tjb746 - 15 mmol/L11/08/2024 10:53 AM CDTUR LABORATORYUrea Rsjidsil70.16.0 - 20.0 mg/dL11/08/2024 10:53 AM CDTUR LABORATORYCreatinine0.71 0.67 - 1.17 mg/dL11/08/2024 10:53 AM CDTUR LABORATORYGFR Estimate>90>60 mL/min/1.08s47911/08/2024 10:53 AM CDTUR LABORATORYComment:eGFR calculated using 2020 CKD-EPI equation.Calcium9.58.8 - 10.4 mg/dL11/08/2024 10:53 AM CDTUR GYAXNUMKBISycfaewd0487 - 107 mmol/L11/08/2024 10:53 AM CDTUR LABORATORYGlucose 8770 - 99 mg/dL11/08/2024 10:53 AM CDTUR LABORATORYAlkaline Ckmovgannyk2968 - 150 U/L11/08/2024 10:53 AM CDTUR EVICRQTQLXGEA095 - 45 U/L11/08/2024 10:53 AM CDTUR TOTOJTTUSNBSP262 - 70 U/L11/08/2024 10:53 AM CDTUR LABORATORYProtein Total7.86.4 - 8.3 g/dL11/08/2024 10:53 AM CDTUR LABORATORYAlbumin4.63.5 - 5.2 g/dL11/08/2024 10:53 AM CDTUR LABORATORYBilirubin Total0.5<=1.2 mg/dL 11/08/2024 10:53 AM CDTUR LABORATORYSpecimen (Source)Anatomical Location / LateralityCollection Method / VolumeCollection TimeReceived TimeBloodSTRUCTURE OF LEFT UPPER LIMB / UnknownVenipuncture / Oyjbkly0011/08/2024 9:43 AM CDT 11/08/2024 9:47 AM CDT Narrative Authorizing ProviderResult TypeResult StatusPearl STRICKLAND - BLOOD ORDERABLESFinal ResultPerforming OrganizationAddressCity/State/ZIP CodePhone Number UR LABORATORY [facility] [address] [facility] [place] [address], [facility] from Last 3 Months or Most Recently Relevant to Health Maintenance Insurance * Guarantor: Alpesh Salmon TypeRelation to PatientDate of BirthPhone Billing AddressPersonal/NlfgjzJlnp63/02/1991 [address] [place] [address] * Guarantor: Alpesh Salmon TypeRelation to PatientDate of BirthPhone Billing AddressPersonal/CwkxytWlnt52/02/1991 [address] [place] [address] * Guarantor: Alpesh Salmon TypeRelation to PatientDate of BirthPhone Billing AddressPersonal/SvwqeaBfbc88/02/1991 [address] [address] MemberSubscriberPlan / Payer (Effective 2013-Present)Name:Alpesh Salmon Member ID:[id number] Relation to Subscriber:SelfName:Alpesh Salmon Subscriber ID:[id number] Payer ID:[id number] Group ID:Not on file Type:Indemnity [phone] Address: [place] [address] * Guarantor: Alpesh Salmon TypeRelation to PatientDate of BirthPhone Billing GykaykhRebsotudyaMfwu93/02/1991 [address] [place] [address] Care Teams Team MemberRelationshipSpecialtyStart DateEnd Date Dalia Wang PA-C [address] , [address] [address] PCP - GeneralPhysician Assistant08/26/16 Dalia Wang PA-C [address] , [address] [address] Assigned PCP07/07/19 Parris Soto NP [facility] [address] [place], [place] [address] Assigned Behavioral Health Provider07/05/24
--- OUTSIDE RECORDS SUMMARY | 2025-02-11 15:26 | XMS_ITS | Encounter Summary ---
Author Organization [place] Address [address] [facility] [place] [address] Care Team Providers Care Fruit Or Nut Farm Worker Name Role Phone Dalia Wang PA-C Primary Care Provid er Dalia Wang PA-C Unavailable [phone] Parris Soto NP Unavailable [phone] Encounter Details DateTypeDepartmentCare Team (Latest Contact Info)Umacylyzcqj47/20/2025Travel Social History Tobacco UseTypesPacks/DayYears UsedDateSmoking Tobacco: FormerCigarettes0.55 [...] or more drinks on one occasion?Less than wzhhyny60/12/2021PHQ-2Answer Date RecordedPHQ-2 Lhyhd095dolescent EducationAnswerDate Recorded Getting School Help NeededNot on [...] in an abandoned building, in an overnight jail, or couch-surfing.)Yes07/26/2024re you worried about losing your [...] Plan of Treatment DateTypeDepartmentCare Team (Latest Contact Info)Strtedfptei65/23/2026 8:30 AM CSTInfusion Therapy Visit [facility] [address] [address] [place], [place] [address] Rica Varela, AIRPLANE FIRST OFFICER [address] [facility] [facility] [address] [place] [address] documented as of this encounter Visit Diagnoses Not on filedocumented in this encounter Additional Health Concerns AssessmentNoted TimePHQ-9 Depression Total Score: 9:15 AM CDT documented as of this encounter Care Teams Team MemberRelationshipSpecialtyStart DateEnd Date Dalia Wang PA-C [address], [facility] [address] [place] [address] PCP - GeneralPhysician Assistant08/26/16 Dalia Wang PA-C [address] [facility] [address] [place] [address] Assigned PCP07/07/19 Parris Soto NP [facility] [address] [place] [address] Assigned Behavioral Health Provider07/05/24documented as of this encounter
--- NOTE | 2025-02-11 16:19 | ED.NAVMDI ---
HPI - Nausea/Vomiting/Diarrhea General Date Seen: 02/11/25 Chief complaint: Nausea/Vomiting Stated complaint: Haven't held down food/fluids for 48 hours Time Seen by Provider: 02/11/25 16:19 History of Present Illness HPI Narrative: 34 yo M with a history of sleep apnea (CPAP) and history of addiction (previously to alcohol, then to Kratom. Now maintaining sobriety with injectable Sublocade) presenting to the ER today with nausea and vomiting ongoing for the past 48 hours. He notes that 2 days ago on Monday he felt a little bit unwell with body aches and fatigue but no specific symptoms. Mild nausea. It was Monday even when he last keep any food down. Since Monday he has been having nausea, very poor appetite, and vomiting. He had at least 3 episodes yesterday on Monday of watery vomit. He had another episode today. He says he just can not imagine drinking water or eating food. He is making urine but he notes smaller volume and darker color yellow/green with urinary concentration. No diarrhea. He is not really having abdominal pain. He does not have a cough. No sore throat. No earache. He H apposed lay on Monday. He has no known clear some suspicious food intake. No recent travel. No recent antibiotics. He has no history of diabetes or endocrine problems. He has no history of GI problems or Crohn's or ulcers. No previous abdominal surgeries. No previous episodes of vomiting. He does smoke marijuana every day. He has never heard of cannabis hyperemesis syndrome. Related Data Home Medications ?Medication ?Instructions ?Recorded ?Confirmed buprenorphine 8 mg-naloxone 2 mg 0.5 - 1 film sublingual DAILY PRN 02/11/25 02/11/25 sublingual film paroxetine HCl 30 mg tablet 30 mg PO QAM 02/11/25 02/11/25 paroxetine HCl 40 mg tablet 40 mg PO QAM 02/11/25 02/11/25 trazodone 50 mg tablet 75 mg PO QPM 02/11/25 02/11/25 Allergies Allergy/AdvReac Type Severity Reaction Status Date / Time cefdinir Allergy Verified 04/12/23 11:09 [facility] Social History Smoking Status: Former smoker Do you use any of these nicotine containing products: E-Cigarettes Second hand tobacco smoke exposure: No How often do you have a drink containing alcohol: never How often do you have six or more drinks on one occasion: Never AUDIT-C Alcohol total score: 0 Non-prescribed substance use: marijuana (any form) Non-prescribed substance use details: smokes and gummies weekly service: No Exam Narrative: Exam Narrative: Constitutional: Appears well-developed and well-nourished. Alert. Conversant. Non toxic. He is watching videos on his smart phone as I enter the room but he politely puts his phone way for history and physical. HENT: Head: Atraumatic. Nose: Nose normal. Mouth/Throat: Oral mucosa is clear . Mucous membranes are dry but not desiccated or cracked. no trismus. Pharynx normal. Tonsils symmetric. No tonsillar enlargement, erythema, or exudate. Eyes: Conjunctivae normal. EOM normal. Pupils equal, round, and reactive to light. No scleral icterus. Neck: Normal range of motion. Neck supple. No tracheal deviation present. Cardiovascular: Normal rate, regular rhythm. No gallop. No friction rub. No murmur heard. Symmetric radial artery pulses Pulmonary/Chest: Effort normal. No stridor. No respiratory distress. No wheezes. No rales. No rhonchi . No tenderness. Abdominal: Soft. Bowel sounds normal. No distension. No mass. No tenderness. No rebound. No guarding. There is a small subcutaneous nodule in left lower quadrant which he says is the site where he injected his Sublocade. There is no redness. No fluctuance. No CVA tenderness. Musculoskeletal: RUE: Normal range of motion. No tenderness. No deformity LUE: Normal range of motion. No tenderness. No deformity RLE: Normal range of motion. No edema. No tenderness. No deformity LLE: Normal range of motion. No edema. No tenderness. No deformity Neurological: Alert and oriented to person, place, and time. Normal strength. CN II-VII intact. No sensory deficit. GCS eye subscore is 4. GCS verbal subscore is 5. GCS motor subscore is 6. Normal coordination Skin: Skin is warm and dry. No rash noted. No pallor. Normal capillary refill. Psychiatric: Normal mood. Normal affect. Const: Vital Signs, click to edit/add: Vital Signs - 24 hr 02/11/25 15:23 02/11/25 18:18 Temperature 96.7 F L Pulse Rate [Pulse Oximeter] 82 69 Respiratory Rate 18 16 Blood Pressure [Ri ght Upper Arm] 107/71 107/71 Pulse Oximetry 99 99 Oxygen Delivery Me thod Room Air Room Air Course Course ED Course: Recheck-feeling better. Nausea resolved. Passed p.o. challenge with water and crackers. Feeling well. Ready to get home. Vital Signs Vital signs: Initial Vital Signs Temperature 96.7 F L 02/11/25 15:23 Temperature Source Temporal Artery Scan 02/11/25 15:23 Pulse Rate 82 02/11/25 15:23 Respiratory Rate 18 02/11/25 15:23 Blood Pressure 107/71 02/11/25 15:23 Blood Pressure Mean 83 02/11/25 15:23 Pulse Oximetry 99 02/11/25 15:23 Oxygen Delivery Method Room Air 02/11/25 15:23 Vital Signs Temperature 96.7 F L 02/11/25 15:23 Pulse Rate 82 02/11/25 15:23 Respiratory Rate 18 02/11/25 15:23 Blood Pressure 107/71 02/11/25 15:23 Pulse Oximetry 99 02/11/25 15:23 Oxygen Delivery Method Room Air 02/11/25 15:23 Temperature 96.7 F L 02/11/25 15:23 Pulse Rate 69 02/11/25 18:18 Respiratory Rate 16 02/11/25 18:18 Blood Pressure 107/71 02/11/25 18:18 Pulse Oximetry 99 02/11/25 18:18 Oxygen Delivery Method Room Air 02/11/25 18:18 Medications Administered Medications: Discontinued Medications Generic Name Dose Route Start Last Admin Trade Name Freq PRN Reason Stop Dose Admin Sodium Chloride 1,000 mls @ 1,000 mls/hr 02/11/25 16:45 02/11/25 17:31 0.9 % Sodium Chloride 1000 Ml IV 02/11/25 17:44 Infused .Q1H ADDIE Infusion Ondansetron HCl 4 mg 02/11/25 16:36 02/11/25 16:44 Ondansetron 2 Mg/Ml Inj IVP 02/11/25 16:37 4 mg ONCE ONE Administration MDM - Nausea/Vomiting/Diarrhea MDM Narrative Medical decision making narrative: This patient presents with vomiting and nausea ongoing for the past 48 hours. The patient's symptoms and exam could be consistent with a viral GI infection. There is no high fever, severe pain, bilious or bloody emesis, blood or mucous in the stool, severe abdominal pain, or other concerning signs for a bacterial infection. No recent travel or high risk exposure for bacterial pathogen. No recent antibiotics or risk factors for C. diff. I don't see any evidence for appendicitis, bowel obstruction, abscess, bowel perforation, or other surgical emergency. At this point I do not think he needs a CT scan or ultrasound or other advanced imaging. Labs show no concerning electrolyte disturbance or renal failure. He does have mildly abnormal transaminases. Unclear significance. Will add on viral hepatitis panel. I also considered the possibility that he has previously unrecognized non alcoholic fatty liver disease. Discussed with the patient that we will contact him by phone if any of his viral serologies are abnormal and I recommend that he follow up with PCP, he even if he gets better after this acute illness, within about 2-3 weeks to repeat liver function tests. After meds given the patient is feeling better. At this point, the patient is non-septic appearing and well hydrated.I think the patient can be managed as an outpatient. We have discussed oral rehydration strategies. They understand and can perform the needed interventions at home. I have provided a prescription for antiemetics to facilitate oral hydration (Instymeds, Zofran 0 DT). We have discussed the signs and symptoms of worsening dehydration. They understand the need for immediate reevaluation if any of these symptoms occur. They are also directed to obtain close outpatient follow up within 2-3 days unless he is completely improved. In that case follow-up in 2-3 weeks for repeat liver function tests.. Lab Data Labs: Lab Results 02/11/25 02/11/25 02/11/25 Range/Units 16:39 17:30 17:48 WBC 6.40 (4.50-11.00) K/uL RBC 5.26 (4.30-5.90) m/uL Hgb 14.8 (13.5-17.5) gm/dL Hct 43.0 (37.0-53.0) % MCV 82 (80-100) fL MCH 28 (26-34) pg MCHC 34 (32-36) gm/dL RDW Coeff of Lara 12.1 (11.5-15.5) % Plt Count 277 (140-440) K/uL Neut % (Auto) 51.1 (42.0-72.0) % Lymph % (Auto) 36.1 (20-44) % [place] % (Auto) 10.5 (0.0-11.0) % Eos % (Auto) 1.9 (0.0-7.0) % Baso % (Auto) 0.2 (0.0-3.0) % Neut # (Auto) 3.28 (1.7-7.0) K/uL Lymph # (Auto) 2.31 (0.90-2.90) K/uL Miner # (Auto) 0.70 (0.00-0.90) K/UL Eos # (Auto) 0.12 (0.00-0.50) K/uL Baso # (Auto) 0.01 (0.00-0.30) K/uL Abs Immat Gran (auto) 0.01 (0.00-0.30) K/uL Imm/Tot Granulo (auto) 0.2 % Sodium 136 (135-149) mmol/L Potassium 4.0 (3.6-5.1) mmol/L Chloride 97 (96-114) mmol/L Carbon Dioxide 27 (20-32) mmol/L Anion Gap 12 (7-15) mEq/L BUN 14 (5-24) mg/dL Creatinine 0.5 (0.5-1.5) mg/dL Estimated Creat Clear 212.92 Estimated GFR 136 ml/min Glucose 90 (60-115) mg/dL Calcium 9.9 (8.4-10.6) mg/dL Total Bilirubin 0.7 (0.1-1.5) mg/dL AST 56 H (12-35) U/L ALT 82 H (4-50) U/L Alkaline Phosphatase 60 (40-150) U/L Total Protein 8.4 H (6.0-8.3) g/dL Albumin 4.8 (3.3-5.0) g/dL Lipase 61 (23-300) U/L Urine Color Yellow (Yellow) Urine Appearance Clear (Clear) Urine pH 6.0 (5.0-8.5) Ur Specific [place] 1.025 (1.000-1.030) Urine Protein Trace A (Negative) Urine Glucose (UA) Negative (Negative) Urine Ketones 4+ A (Negative) Urine Blood Trace-intact A (Negative) Urine Nitrite Negative (Negative) Urine Bilirubin 1+ A (Negative) Urine Urobilinogen 0.2 (0.2-1.0) Ur Leukocyte Esterase Negative (Negative) Urine RBC 0-2 (0-2) Urine WBC 0-2 (0-5) Ur Squamous Epith Cells Few (None-Few) Urine Bacteria None (None) SARS-CoV-2 (PCR) Negative SARS-CoV-2 (Negative) Influenza Type A (PCR) Negative PCR FLU A (Negative) Influenza Type B (PCR) Negative PCR FLU B (Negative) RSV (PCR) Negative PCR RSV (Negative) Lab Acknowledgement Test Added Discharge Plan Discharge Clinical Impression: Nausea & vomiting, Acute dehydration, Abnormal LFTs Patient Disposition: Home, Self-Care Condition: Stable Instructions: Dehydration (ED), Acute Nausea and Vomiting (DC) Additional Instructions: As we discussed, please come back to the ER right away if you get worse-especially fever, abdominal pain, blood in your vomit, or bloody or black stool. If you are not completely improved within 48 hours, please recheck with your regular doctor or come back to the ER to be rechecked. Even if you get better, please make a checkup with your doctor for within the next 2-3 weeks to double check your liver function blood tests. Prescriptions: No Action trazodone 50 mg tablet 75 mg PO QPM paroxetine HCl 30 mg tablet 30 mg PO QAM paroxetine HCl 40 mg tablet 40 mg PO QAM buprenorphine-naloxone 8-2 mg film 0.5 - 1 film sublingual DAILY PRN Follow Up/Referrals: Provider,Not a Local [Non-Staff, Family Practice] Stand Alone Forms: [facility] Info Instructions
[2025-02-11] MEDS: ONDANSETRON 2 MG/ML inj 4 MG IVP (16:44)
[2025-02-11 16:48] LABS: Hematocrit* 43.0 % (37.0-53.0); Hemoglobin* 14.8 gm/dL (13.5-17.5); Immature Granulocytes Abs Auto 0.01 K/uL (0.00-0.30); Immature Granulocytes Pct Auto 0.2 %; Lymphocytes Absolute Auto 2.31 K/uL (0.90-2.90); Mean Corpuscular HGB Conc 34 gm/dL (32-36); Mean Corpuscular Hemoglobin 28 pg (26-34); Mean Corpuscular Volume 82 fL (80-100); RDW Coefficient of Variation % 12.1 % (11.5-15.5); Red Blood Count* 5.26 m/uL (4.30-5.90); White Blood Count* 6.40 K/uL (4.50-11.00)
[2025-02-11 17:13] LABS: Slide Review Reflex No
[2025-02-11 17:24] LABS: PCR FLU A Negative PCR FLU A (Negative); PCR FLU B Negative PCR FLU B (Negative); PCR RSV Negative PCR RSV (Negative); SARS PCR* Negative SARS-CoV-2 (Negative)
[2025-02-11 17:35] LABS: Albumin* 4.8 g/dL (3.3-5.0); Chloride* 97 mmol/L (96-114); Potassium* 4.0 mmol/L (3.6-5.1); Sodium* 136 mmol/L (135-149)
[2025-02-11 17:37] LABS: Alanine Aminotransferase* 82 U/L (4-50); Aspartate Amino Transferase* 56 U/L (12-35); Blood Urea Nitrogen* 14 mg/dL (5-24); Creatinine* 0.5 mg/dL (0.5-1.5); Estimated Glomerular Filt Rate 136 ml/min
[2025-02-11 17:38] LABS: Alkaline Phosphatase* 60 U/L (40-150); Anion Gap 12 mEq/L (7-15); Bilirubin Total* 0.7 mg/dL (0.1-1.5); Calcium* 9.9 mg/dL (8.4-10.6); Carbon Dioxide* 27 mmol/L (20-32); Glucose* 90 mg/dL (60-115); Total Protein* 8.4 g/dL (6.0-8.3)
[2025-02-11 17:44] LABS: Appearance Urine Clear (Clear)
[2025-02-11 18:18] VITALS: BP 107/71; PULSE 69; RESP 16; O2SAT 99
[2025-02-16 13:33] LABS: Hep B Surface Antigen Negative (Negative); Hep C Ab by CIA Interp Negative (Negative)
== END 2025-02-11 18:45 | disposition home or self-care (01) ==
PROVIDERS: Emergency Provider Emergency Medicine; PCP Physician Assistant Medical
DX: R11.2 Nausea with vomiting, unspecified (principal); E86.0 Dehydration; R79.89 Other specified abnormal findings of blood chemistry; G47.33 Obstructive sleep apnea (adult) (pediatric); Z99.89 Dependence on other enabling machines and devices
CPT/HCPCS: 36415; 80053; 80074; 81001; 83690; 85025; 87631; 96361; 96374; 99283; 99284; J2405; J7030